=== PATIENT | female | born 2000 | race Two or more races ===

== ENCOUNTER 2021-07-04 08:20 | Emergency (ER) | payer OTHER ==
[~2021-07-04] VITALS: Ht 160 cm; Wt 65.3 kg
--- NOTE | 2021-07-04 08:26 | NUR ---
TO ER BED 4, BIB SELF C/O EPIGASTRIC PAIN STARTED YESTERDAY AND DIZZINESS STARTED THIS MORNING, AAOX3, BREATHING EVEN AND NON LABORED, AWAITING MD VÁZQUEZ
--- NOTE | 2021-07-04 08:47 | NUR ---
AT BEDSIDE FOR EVAL.
[2021-07-04] MEDS ORDERED: ONDANSETRON HCL/PF 4 MG/2 ML VIAL ONE (09:03)
[2021-07-04] MEDS ORDERED: FAMOTIDINE/PF INJ 20 MG/2 ML VIAL IV ONE (09:03)
[2021-07-04] MEDS: IV NS 0.9% 1,000 ML BAG IV ONE (09:10)
[2021-07-04 09:12] LABS: BASOPHILS # (AUTO) 0.1 K/uL (0.0-0.2); BASOPHILS % (AUTO) 0.6 % (0.0-2.0); EOSINOPHILS % (AUTO) 3.1 % (0.0-6.0); HEMATOCRIT 44 % (33-45); HEMOGLOBIN 15.2 g/dL (11.5-14.8); LYMPHOCYTES # (AUTO) 1.8 K/uL (0.8-4.8); LYMPHOCYTES % (AUTO) 16.5 % (20.0-44.0); MEAN CORPUSCULAR HGB CONC 34 g/dl (31.0-36.0); MEAN CORPUSCULAR VOLUME 96 fL (82-100); MONOCYTES # (AUTO) 0.8 K/uL (0.1-1.30); MONOCYTES % (AUTO) 7.5 % (2.0-12.0); NEUTROPHILS % (AUTO) 72.3 % (43.0-81.0); PLATELET COUNT (AUTO) 204 K/uL (150-450); RED BLOOD CELL COUNT(AUTO) 4.62 MIL/uL (4.0-5.2)
[2021-07-04] MEDS: FAMOTIDINE/PF INJ 20 MG/2 ML VIAL IV ONE (09:14)
[2021-07-04] MEDS: ONDANSETRON HCL/PF 4 MG/2 ML VIAL IVP ONE (09:14)
[2021-07-04 09:33] LABS: ALBUMIN 3.9 g/dL (3.4-5.0); BILIRUBIN,DIRECT 0.3 mg/dL (0.0-0.2); BILIRUBIN,TOTAL 1.5 mg/dL (0.2-1.0); CALCIUM, SERUM 8.9 mg/dL (8.5-10.1); CREATININE 0.8 mg/dL (0.6-1.3); POTASSIUM 3.5 mmol/L (3.5-5.1); TOTAL PROTEIN, SERUM 7.8 g/dL (6.4-8.2)
--- NOTE | 2021-07-04 10:06 | NUR ---
PATIENT AMBULATED TO THE RESTROOM WITH STEADY GAIT
[2021-07-04] MEDS ORDERED: FAMO-131 PO (10:09)
[2021-07-04] MEDS ORDERED: DOCU-141 PO (10:09)
--- NOTE | 2021-07-04 10:20 | NUR ---
IV removed. Catheter intact and site benign. Pressure and 4x4 applied to site. No bleeding noted.Patient discharged to home in stable condition. Written and verbal after care instructions given. Patient verbalizes understanding of instruction.
[2021-07-04 10:21] VITALS: BP 129/84
== END 2021-07-04 10:21 | disposition home or self-care (01) ==
LOC: ER 08:30
DX: R10.13 Epigastric pain (principal); J45.909 Unspecified asthma, uncomplicated
CPT/HCPCS: 36415; 76705; 80048; 80076; 83690; 85025; 96361; 96374; 96375; 99284; J2405; J3490; J7030

== ENCOUNTER 2021-08-09 19:49 | Emergency (ER) | payer OTHER ==
[~2021-08-09] VITALS: Ht 157.5 cm; Wt 63.5 kg
[~2021-08-09 19:49] MED LIST: DOCU-141 PO; FAMO-131 PO
--- NOTE | 2021-08-09 20:06 | NUR ---
BIBS C/O ASTHMA ATTACK WITH COUGH UNRELIEVED BY INHALER X1DAY BIBS C/O ASTHMA ATTACK WITH COUGH UNRELIEVED BY INHALER X1DAY. ALSO C/O HAVING A STYE IN LEFT EYE. PATIENT IN BED 06 ON MONITOR AWAITING MD VÁZQUEZ.
--- NOTE | 2021-08-09 20:09 | NUR ---
SIM LARA @ BEDSIDE FOR EVAL.
[2021-08-09] MEDS ORDERED: predniSONE 20 MG TABLET ONE (20:19)
[2021-08-09] MEDS ORDERED: IPRATROPIUM NEB FS 0.5 MG/2.5 ML AMPUL.NEB NEB ONE (20:30)
[2021-08-09] MEDS ORDERED: ALBUTEROL FS 2.5 MG/3 ML VIAL.NEB NEB ONE (20:30)
[2021-08-09] MEDS ORDERED: predniSONE 20 MG TABLET PO ONE (20:30)
[2021-08-09] MEDS ORDERED: ALBUTEROL FS 2.5 MG/3 ML VIAL.NEB ONE (20:52)
[2021-08-09] MEDS ORDERED: IPRATROPIUM NEB FS 0.5 MG/2.5 ML AMPUL.NEB ONE (20:52)
[2021-08-09] MEDS ORDERED: PRED20TA PO (21:31)
[2021-08-09] MEDS ORDERED: ALBU8.5H8 INH (21:31)
--- NOTE | 2021-08-09 21:34 | NUR ---
Patient discharged to home in stable condition. Written and verbal after care instructions given. Patient verbalizes understanding of instruction.
[2021-08-09 21:37] VITALS: BP 121/72
== END 2021-08-09 21:37 | disposition home or self-care (01) ==
LOC: ER 19:52
DX: J45.909 Unspecified asthma, uncomplicated (principal); Z79.51 Long term (current) use of inhaled steroids; Z79.899 Other long term (current) drug therapy
CPT/HCPCS: 94640; 99283; J7512